=== PATIENT | female | born 2000 | race African-American/Black ===

== ENCOUNTER 2020-05-13 14:01 | Emergency (ER) | payer SELFPAY ==
[~2020-05-13] VITALS: Ht 152.4 cm; Wt 57.3 kg
[2020-05-13 14:32] VITALS: BP 146/75
--- NOTE | 2020-05-13 14:38 | PHYS DOC ---
Adult General Chief Complaint Chief Complaint: VAGINAL BLEEDING HPI HPI Patient is a 19 year old female who presents with vaginal bleeding beyond her normal menstrual cycle duration. Patient does complain of some low back and low abdomen pressure when urinating for the past 4 days. Patient states he had a normal menstrual cycle that started on May 01 with normal duration and flow, patient states she had her normal scant light vaginal bleeding from the to 10 May. Patient states that she has this continual scant vaginal bleeding that continues on today. Patient states that she is not soaking any pads does not have the need to wear a tampon. Patient states she just notices some light pink color when she wipes after urinating. Patient denies any vaginal discharge, vaginal pain, vaginal itching, however patient does have STI concerns and wishes to be checked for STIs today. Patient does complain of some nausea, denies vomiting, diarrhea, constipation, or acute abdominal pain at this time. Patient states that when she does have abdominal pain it is lower only when she urinates. She describes her discomfort as a 2/10 on a 1-10 pain scale when she urinates otherwise she has no discomfort. Patient states she has had recent unprotected sex, she is not sure whether or not she is and wis hes to have a test done today. Patient denies any fever or chills, visual changes, nasal congestion cough or shortness of breath. Patient denies chest pains or swelling of her extremities. Patient denies any pain in her joints, skin rashes, headaches, focal weaknesses or sensory changes. Patient denies any increased urination or increased thirst, any swelling of her glands, depressions, anxieties, patient denies homicidal or suicidal ideations. Patient states that no one else in her home is having the same symptoms that she. Patient denies being in contact with anybody with COVID-19 virus and does not wish to be treated today. Patient reports she is not on any control, however a year ago on May 2019 had an Implanon removed. Patient denies a family history of uterine problems, uterine cancers, or uterine fibroids. (VASILIY GIRARD APRN) Review of Systems Review of Systems Constitutional: Denies fever or chills Eyes: Denies change in visual acuity, redness, or eye pain HENT: Denies nasal congestion or sore throat Respiratory: Denies cough or shortness of breath Cardiovascular: Denies chest pain, edema, or swelling of her extremities. GI: Complains of low abdomen discomfort only when urinating. Currently complains of nausea, however denies vomiting, bloody stools or diarrhea, or constipation. : Complains of low abdomen pressure and low back pain when urinating, has pink-tinged spotting on toilet paper after wiping. Musculoskeletal: Denies back pain or joint pain Integument: Denies rash or skin lesions Neurologic: Denies headache, focal weakness or sensory changes Endocrine: Denies polyuria or polydipsia Psychiatric: Patient denies anxieties, depressions, homicidal or suicidal ideations. All other systems were reviewed and found to be within normal limits, except as documented in this note. (VASILIY GIARRD APRN) Current Medications Current Medications Patient states she does not take any [id number] nor prescription medications. (VASILIY GIRARD APRN) Allergies Allergies Patient denies allergies to medications. (VASILIY GIRARD APRN) Physical Exam Physical Exam Constitutional: Well developed, well nourished, no acute distress, non-toxic appearance. HENT: Normocephalic, atraumatic, bilateral external ears normal, oropharynx moist, no oral exudates, nose normal. Eyes: PERRLA, EOMI, conjunctiva normal, no discharge. Neck: Normal range of motion, no tenderness, supple, no stridor. Cardiovascular:Heart rate regular rhythm, no murmur, heart sounds S1-S2 to auscultation. Lungs & Thorax: Bilateral breath sounds clear to auscultation all lung de la cruz Abdomen: Bowel sounds normal all 4 quadrants auscultation, soft, no tenderness, no masses, no pulsatile masses. Skin: Warm, dry, no erythema, no rash. Back: No tenderness, no CVA tenderness. Extremities: No tenderness, no cyanosis, no clubbing, ROM intact, no edema. Neurologic: Alert and oriented X 3, normal motor function, normal sensory function, no focal deficits noted. Psychologic: Affect normal, judgement normal, mood normal. : Pelvic exam no abnormalities of external structures, no lesions, rashes, no discharge, no erythema noted on external exam, speculum exam showed normal vaginal mucosal lining without lesions, discharge, erythema, or irritation, the os was closed, no signs of infectious process. Bimanual exam with no cervical motion tenderness, no pain ilicited, wnl. (VASILIY GIRARD APRN) Current Patient Data Vital Signs TAKEN BY ED NURSING STAFF: ORAL TEMP 98.1, RR 16, PULSE 77, B/P 146/75, O2 SAT 96% ON RA Lab Results Laboratory Tests Test 05/13/20 14:11 05/13/20 15:33 Urine Collection Type Unknown Urine Color Colorless Urine Clarity Clear Urine pH 7.0 Urine Specific [place] 1.020 Urine Protein Neg Urine Glucose (UA) Neg mg/dL Urine Ketones (Stick) Neg mg/dL Urine Blood Large Urine Nitrite Neg Urine Bilirubin Neg Urine Urobilinogen Dipstick 0.2 mg/dL Urine Leukocyte Esterase Trace Urine RBC Rare /HPF Urine WBC 0 /HPF Urine Squamous Epithelial Cells Few /LPF Urine Bacteria 0 /HPF Bedside Urine HCG, Qualitative hcg negative Current Medications Medications (Trade) Dose Ordered Sig/Alexandra Route PRN Reason Start Time Stop Time Status Last Admin Dose Admin Ondansetron HCl (Zofran Odt) 4 mg 1X ONCE PO 05/13/20 14:45 05/13/20 14:57 DC 05/13/20 15:01 Laboratory Tests Test 05/13/20 14:11 Urine Collection Type Unknown Urine Color Colorless Urine Clarity Clear Urine pH 7.0 Urine Specific [place] 1.020 Urine Protein Neg Urine Glucose (UA) Neg mg/dL Urine Ketones (Stick) Neg mg/dL Urine Blood Large Urine Nitrite Neg Urine Bilirubin Neg Urine Urobilinogen Dipstick 0.2 mg/dL Urine Leukocyte Esterase Trace Urine RBC Rare /HPF Urine WBC 0 /HPF Urine Squamous Epithelial Cells Few /LPF Urine Bacteria 0 /HPF Current Medications Medications (Trade) Dose Ordered Sig/Alexandra Route PRN Reason Start Time Stop Time Status Last Admin Dose Admin Ondansetron HCl (Zofran Odt) 4 mg 1X ONCE PO 05/13/20 14:45 05/13/20 14:57 DC 05/13/20 15:01 (VASILIY GIRARD APRN) EKG EKG [] (VASILIY GIRARD APRN) Radiology/Procedures Radiology/Procedures [] (VASILIY GIRARD APRN) Heart Score Risk Factors: Risk Factors: DM, Current or recent (<one month) smoker, HTN, HLP, family history of CAD, obesity. Risk Scores: Risk Factors: DM, Current or recent (<one month) smoker, HTN, HLP, family histo ry of CAD, obesity. (VASILIY GIRARD APRN) Course & Med Decision Making Course & Med Decision Making Pertinent Labs and Imaging studies reviewed. (See chart for details) 19-year-old female presents emergency department complaining of vaginal bleeding beyond her normal menstrual cycle. Patient states that she had an Implanon removed a year ago last May 2019, since then she has intermittent times during her period which lasts longer than normal patient explains that for this current visit she had a normal period with normal duration and flow that started May 01 with scant residual bleeding from the through May 10. Patient states that it was unusual for her to continue to have scant bleeding on the and today on May 13. Patient states she is not soaking pads nor she is not wearing a tampon. Patient states that she notices some light pink tinge on the toilet paper after wiping after urination. Patient states she does have some low back pain and low abdominal pain during urination however she does not have any current pain. Patient does states she feels nauseated and is concerned that she might be . Patient also is concerned she might have a sexually transmitted disease that she recently had unprotected sex. Patient denies any family history of cervical cancers, endometriosis, uterine fibroids, or uterine problems as far she is aware of. The patient's vital signs are normal, a ER work-up was performed which included a urinalysis and urine test which was negative for , however her urine was concerning for cystitis showing large amount of red blood cells with leukocyte Estrace without nitrates. A pelvic exam was performed which was unremarkable, sexually transmitted disease infections is unlikely, however a urine GC chlamydia was ordered, wet prep was obtained which was negative for yeast and trichomonas. Patient was treated with a 4 mg sublingual Zofran which relieved her nausea, patient states she now feels hungry and is ready to go. Discussed findings with patient, will prescribe Keflex for urinary tract infection along with Pyridium for urinary pressure and discomfort, along with sublingual Zofran for intermittent nausea. Encourage patient to use barrier sex, and practice safe sex. Discussed that there was no signs of bleeding come from her uterus and her os was closed however with her history of abnormal uterine bleeding, encouraged patient to follow-up with an [facility] for further evaluation of her abnormal uterine bleeding. Patient gave verbal understanding of prescription instructions, discharge home instructions, return to ER concerns, follow-up with [facility] and/or her doctor instructions, patient had no further questions or concerns, patient was discharged home without incident. (VASILIY GIRARD APRN) Dragon Disclaimer Dragon Disclaimer This electronic medical record was generated, in whole or in part, using a voice recognition dictation system. (VASILIY GIRARD APRN) Attending Co-Sign The patient was seen and interviewed as well as examined at the bedside. The chart was reviewed. The case was discussed. Agree with the plan of care. (ELAN DE LEON DO) Departure Departure: Impression: Primary Impression: Cystitis Additional Impressions: Urinary tract infection Abnormal uterine bleeding Disposition: DC HOME SELF CARE/HOMELESS Condition: GOOD Referrals: PCP,NO (PCP) Patient Instructions: Abnormal Uterine Bleeding, Urinary Tract Infection Additional Instructions: Please take prescribed medications as directed, follow-up with on [facility] concerning your abnormal uterine bleeding, return to the emergency department for worsening symptoms or other concerns. You were checked for sexually transmitted infections today in the emergency department you do not have a yeast infection you do not have trichomonas, however your gonorrhea and chlamydia tests are pending, you will be contacted by the phone number that was you left with admitting/registration if either test is positive and will be prescribed medications at that time if needed. Please use protective barrier sex in the future to prevent sexually transmitted diseases. Scripts Ondansetron (ONDANSETRON ODT) 4 Mg Tab.rapdis 1 TAB PO PRN Q6-8HRS for NAUSEA, #16 TAB 0 Refills Prov: VASILIY GIRARD APRN 05/13/20 Cephalexin (KEFLEX) 500 Mg Capsule 500 MG PO BID for UTI for 7 Days, #14 CAP 0 Refills Prov: VASILIY GIRARD APRN 05/13/20 Phenazopyridine Hcl (PYRIDIUM) 200 Mg Tablet 1 TAB PO TID for urinary discomfort for 2 Days, #6 TAB 0 Refills Prov: VASILIY GIRARD APRN 05/13/20 Problem Qualifiers Additional Impressions: Urinary tract infection Urinary tract infection type: acute cystitis Hematuria presence: with hematuria Qualified Codes: N30.01 - Acute cystitis with hematuria VASILIY GIRARD APRN May 13, 2020 14:38 ELAN DE LEON DO May 14, 2020 06:20
[2020-05-13] MEDS ORDERED: ONDANSETRON ODT 4 MG TAB.RAPDIS PO ONE (14:45)
[2020-05-13 15:12] LABS: BILIRUBIN,URINE NEG (NEG); CLARITY,URINE CLEAR; COLOR,URINE COLORLESS; GLUCOSE,URINE NEG (NEG)
[2020-05-13 15:13] LABS: BACTERIA,URINE 0 /HPF (0-FEW); NITRITE,URINE NEG (NEG); RBC,URINE RARE /HPF (0-2); SQUAMOUS EPITHELIAL CELL,UR FEW /LPF; UROBILINOGEN,URINE 0.2 mg/dL (0.2 mg/dL); WBC,URINE 0 /HPF (0-4)
[2020-05-13] MEDS ORDERED: PHEN-318 PO (16:51)
[2020-05-13] MEDS ORDERED: CEPH-264 PO (16:51)
[2020-05-13] MEDS ORDERED: ONDA4TAB12 PO (16:52)
== END 2020-05-13 16:57 | disposition home or self-care (01) ==
LOC: ER 14:01
DX: N30.01 Acute cystitis with hematuria (principal); N93.8 Other specified abnormal uterine and vaginal bleeding
CPT/HCPCS: 36415; 81001; 81025; 87086; 87491; 87591; 99284; Q0111; Q0162; 99283

== ENCOUNTER 2021-01-27 19:08 | Emergency (ER) | payer SELFPAY ==
[~2021-01-27] VITALS: Ht 152.4 cm; Wt 56.7 kg
[~2021-01-27 19:08] MED LIST: CEPH-264 PO; ONDA4TAB12 PO; PHEN-318 PO
[2021-01-27] MEDS ORDERED: HYDROcodone/APAP 5/325MG 1 TAB TABLET PO ONE (19:45)
--- NOTE | 2021-01-27 20:36 | RAD ---
Study: XR FOOT_RIGHT 3 VIEWS Indication: Swelling. Pain. Comparison: None. Findings: Soft tissue prominence at the dorsum of the midfoot centered over the cuneiforms and slightly extendi ng over the navicular. No acute osseous abnormality. Maintained joint spaces. No retained radiopaque foreign body. Impression: Soft tissue prominence only apparent on the lateral view centered over the cuneiforms. No associated osseous abnormality or retained radiopaque foreign body. A ganglion cyst or abnormality of an extenso r tendon is possible. As deemed clinically necessary, nonemergent MRI would allow for better characte rization. Electronically signed by: PAOLO SANDHU MD (01/27/2021 8:33 PM) [facility]
--- NOTE | 2021-01-27 20:50 | PHYS DOC ---
Past History Past Medical History: No Pertinent History (LOBITO MONTES APRN) Past Surgical History: No Surgical History (LOBITO MONTES APRN) Alcohol Use: Rarely (LOBITO MONTES APRN) General Adult EDM: Chief Complaint: LOWER EXT PAIN HPI: HPI: Patient is a 20-year-old female who presents to the ER today for pain to the top of her right foot that started 1 week ago. Patient rates pain 7 out of 10, it radiates to her toes, no treatment prior to arrival. Patient ports that it is worse with bearing weight. She has tried compresses/massage without any relief. She is unaware of any injury. Patient denies decreased range of motion, decreased sensation, inability to bear weight and ambulate. (LOBITO MONTES APRN) Review of Systems: Review of Systems: 14 body systems of the review of systems have been reviewed. See HPI for pertinent positive and negative responses, otherwise all other systems are negative, nonpertinent or noncontributory (LOBITO MONTES APRN) Current Medications: Current Meds: Current Medications Medications (Trade) Dose Ordered Sig/Alexandra Start Time Stop Time Status Last Admin Dose Admin Acetaminophen/ Hydrocodone Bitart (Lortab 5/325) 1 tab 1X ONCE 01/27/21 19:45 01/27/21 19:46 DC 01/27/21 19:31 1 TAB (LOBITO MONTES APRN) Allergies: Allergies: Allergies Coded Allergies Type Severity Reaction Last Updated Verified aspirin Allergy Unknown 05/13/20 Yes (LOBITO MONTES APRN) Physical Exam: PE: Constitutional: Well developed, well nourished, no acute distress, non-toxic appearance. [] HENT: Normocephalic, atraumatic Eyes: PERRL, conjunctiva normal, no discharge. [] Neck: Normal range of motion, no stridor Cardiovascular: Normal peripheral perfusion Lungs & Thorax: Normal work of breathing, no tachypnea Skin: Warm, dry, no erythema, no rash, no wounds, no ecchymosis. [] Back: No tenderness, normal range of motion Extremities: No tenderness, no cyanosis, no clubbing, ROM intact, no edema. Right foot: 1.5 cm x 1.5 cm area of swelling noted to the dorsal aspect of patient's right foot, neuro intact, range of motion intact [] Neurologic: Alert and oriented X 3, normal motor function, normal sensory function, no focal deficits noted. [] Psychologic: Affect normal, judgement normal, mood normal. [] (LOBITO MONTES APRN) Current Patient Data: Vital Signs: Vital Signs Date Time Temp Pulse Resp B/P (MAP) Pulse Ox O2 Delivery O2 Flow Rate FiO2 01/27/21 19:58 16 01/27/21 19:16 98.3 89 116/63 98 Room Air (LOBITO MONTES APRN) EKG: EKG: [] (LOBITO MONTES APRN) Radiology/Procedures: Radiology/Procedures: PROCEDURE: FOOT RIGHT 3V Study: XR FOOT_RIGHT 3 VIEWS Indication: Swelling. Pain. Comparison: None. Findings: Soft tissue prominence at the dorsum of the midfoot centered over the cuneiforms and slightly extending over the navicular. No acute osseous abnormality. Maintained joint spaces. No retained radiopaque foreign body. Impression: Soft tissue prominence only apparent on the lateral view centered over the cuneiforms. No associated osseous abnormality or retained radiopaque foreign body. A ganglion cyst or abnormality of an extensor tendon is possible. As deemed clinically necessary, nonemergent MRI would allow for better characterization. Electronically signed by: PAOLO SANDHU MD (01/27/2021 8:33 PM) [facility] DICTATED AND SIGNED BY: PAOLO SANDHU MD DATE: 01/27/212030 CC: EMERGENCY,DEPARTMENT; LOBITO MONTES APRN; PCP,NO ~MTH0 0 (LOBITO MONTES APRN) Heart Score: C/O Chest Pain: No Risk Factors: Risk Factors: DM, Current or recent (<one month) smoker, HTN, HLP, family history of CAD, obesity. Risk Scores: Score 0 - 3: 2.5% MACE over next 6 weeks - Discharge Home Score 4 - 6: 20.3% MACE over next 6 weeks - Admit for Clinical Observation Score 7 - 10: 72.7% MACE over next 6 weeks - Early Invasive Strategies (LOBITO MONTES APRN) Course & Med Decision Making: Course & Med Decision Making Pertinent Labs and Imaging studies reviewed. (See chart for details) Patient is a 20-year-old female being seen for pain and swelling to the top of her right foot. An x-ray was performed and it was negative for any acute fracture but did report that it is likely that patient has a ganglion cyst. Patient was provided with an Roger wrap per request in the ER. Patient's pain treated while in the ER. I discussed with patient all findings and diagnostic testing as well as the need to follow-up with PCP for further evaluation and treatment or return to the ER if any new or worsening symptoms. Strict return precautions were also discussed at length. Patient voiced understanding and agreement with the plan. Patient is hemodynamically stable at the time of disposition. (LOBITO MONTES APRN) Course & Med Decision Making Did not see or evaluate patient. Agree with RN DERMATOLOGY's work-up and disposition per note. (JOSY QUINONES MD) Dragon Disclaimer: Dragon Disclaimer: This electronic medical record was generated, in whole or in part, using a voice recognition dictation system. (LOBITO MONTES APRN) Departure Departure: Impression: Primary Impression: Ganglion cyst of foot Disposition: HOME / SELF CARE / HOMELESS Condition: GOOD Referrals: PCP,NO (PCP) Patient Instructions: Ganglion Cyst Additional Instructions: You were seen in the ER today for pain and swelling to the right top of your foot. An x-ray was performed it was negative for any fracture. The radiologist did report that the soft tissue swelling on the top of your foot could be due to a ganglion cyst. You can take Tylenol/ibuprofen for pain. The application of ice and elevation may help with the swelling. You can use Roger wrap to help with the swelling. If your pain persists you may need to follow-up with a bag printer. If you have worsening of your pain, decreased range of motion, inability to bear weight or walk please return to the ER. EMERGENCY DEPARTMENT GENERAL DISCHARGE INSTRUCTIONS Thank you for coming to [facility] (ED) today and trusting us with you care. We trust that you had a positivie experience in our Emergency Department. If you wish to speak to the department management, you may call the director at [phone]. YOUR FOLLOW UP INSTRUCTIONS ARE FOLLOWS: 1. Do you have a private Doctor? If you do not have a private doctor, please ask for a resource list of physicians or clinics that may be able to assist you with follow up care. 2. The Emergency Physician has interpreted your x-rays. The X-Ray specialist will also review them. If there is a change in the findings, you will be notified in 48 hours when at all possible. 3. A lab test or culture has been done, your results will be reviewed and you will be notified if you need a change in treatment. ADDITIONAL INSTRUCTIONS AND INFORMATION: 1. Your care today has been supervised by a physician who is specially trained in emergency care. Many problems require more than one evaluation for a complete diagnosis and treatment. We recommend that you schedule your follow up appointment as recommended to ensure complete treatment of you illness or injury. If you are unable to obtain follow up care and continue to have a problem, or if your condition worsens, we recommend that you return to the ED. 2. We are not able to safely determine your condition over the phone nor are we able to give sound medical advice over the phone. For these safety reasons, if you call for medical advice we will ask you to come to the ED for further evaluation. 3. If you have any questions regarding these discharge instructions please call the ED at [phone]. SAFETY INFORMATION: In the interest of safety, wellness, and injury prevention; we encourage you to wear your sealbelt, if you smoke; quite smoking, and we encourage family to use a protective helmet for bicycling and other sporting events that present an increased risk for head injury. IF YOUR SYMPTOMS WORSEN OR NEW SYMPTOMS DEVELOP, OR YOU HAVE CONCERNS ABOUT YOUR CONDITION; OR IF YOUR CONDITION WORSENS WHILE YOU ARE WAITING FOR YOUR FOLLOW UP APPOINTMENT; EITHER CONTACT YOUR PRIMARY CARE DOCTOR, THE PHYSICIAN WHOSE NAME AND NUMBER YOU WERE GIVEN, OR RETURN TO THE ED IMMEDIATELY. LOBITO MONTES APRN Jan 27, 2021 20:50 JOSY QUINONES MD Jan 28, 2021 00:42
[2021-01-27 20:59] VITALS: BP 114/65
== END 2021-01-27 21:00 | disposition home or self-care (01) ==
LOC: ER 19:08
DX: M67.471 Ganglion, right ankle and foot (principal); Z88.6 Allergy status to analgesic agent
CPT/HCPCS: 73630; 99283